=== PATIENT | male | born 1955 | race Caucasian/White ===

== ENCOUNTER 2017-04-10 05:40 | Day surgery (SDC) | payer OTHER ==
[2017-04-10] MEDS ORDERED: MIDAZOLAM 1 MG/ML 2 ML INJ (08:39)
[2017-04-10] MEDS ORDERED: FENTAnyl 50 MCG/ML VIAL (08:39)
== END 2017-04-10 09:20 | disposition home or self-care (01) ==
LOC: GIL 05:40
DX: Z12.11 Encounter for screening for malignant neoplasm of colon (principal); K57.90 Diverticulosis of intestine, part unspecified, without perforation or abscess without bleeding; K64.8 Other hemorrhoids; E11.9 Type 2 diabetes mellitus without complications; I10 Essential (primary) hypertension
CPT/HCPCS: 45378; 82962